=== PATIENT | female | born 1945 | race Caucasian/White ===

== ENCOUNTER 2022-12-04 05:12 | Outpatient (CLI) | payer MEDICARE, SELFPAY | END 2022-12-04 05:13 | disposition home or self-care (01) | LOC: AMB 12-10 06:11 | PROVIDERS: PCP Family Medicine; Visit Provider Family Medicine | DX: S09.90XA Unspecified injury of head, initial encounter (principal); W18.39XA Other fall on same level, initial encounter; Y92.092 Bedroom in other non-institutional residence as the place of occurrence of the external cause ==